=== PATIENT | female | born 1995 | race Caucasian/White ===

== ENCOUNTER 2021-04-04 07:52 | Emergency (ER) | payer OTHER, SELFPAY ==
[2021-04-04 08:12] VITALS: BP 150/83; PULSE 105; RESP 20; TEMP 36.5; O2SAT 97
[2021-04-04] MEDS: diazePAM INJ (*CRX) 10 MG/2 ML SYRINGE 5 MG IV PUSH (08:27)
[2021-04-04] MEDS: MORPHINE SULFATE (*CRX) 4 MG/ML INJ IV PUSH (11:11)
--- NOTE | 2021-04-04 11:50 | ED.BACK ---
HPI - Back Pain/Injury General Chief Complaint: Back Pain/Injury Stated Complaint: back pain Time Seen by Provider: 04/04/21 07:56 History of Present Illness HPI Narrative: Patient is a 26-year-old female who presents ER with low back pain. Woke up this morning with the pain in the L4 region of her back. Has history of this in the past. She has had epidural injections in the past. None recently. No fevers or chills or sweats. No radiation to her legs. No saddle anesthesia or difficulty with urination/defecation. States she was having trouble at work today and usual cannot work so she needed to come to the ER to be evaluated. No known trauma. She does report she has been at home with her children and has been doing her normal activities without. Related Data Allergies Allergy/AdvReac Type Severity Reaction Status Date / Time amoxicillin Allergy Intermediate Hives Verified 04/04/21 08:14 codeine Allergy Mild Hives Verified 04/04/21 08:14 watermelon Allergy Mild Difficulty Verified 04/04/21 08:14 Swallowing Review of Systems Review of Systems: All systems reviewed & are unremarkable except as noted in HPI and below Constitutional: Constitutional: Denies chills and Denies fever(s) Cardiovascular: Cardiovascular: Denies chest pain, Denies rapid heart rate and Denies radiating jaw, neck or arm pain Respiratory: Respiratory: Denies cough, Denies dyspnea and Denies wheezing Genitourinary: Genitourinary: Denies dysuria and Denies flank pain Musculoskeletal: Musculoskeletal: Reports back pain, Denies arthralgias, Denies joint swelling and Denies muscle cramps PMFSH Past Medical History Medical History (Updated 04/04/21 @ 12:08 by Delbert Mcmahan MD) Chronic low back pain Kidney stones Pyelonephritis Surgical History Surgical History (Updated 04/04/21 @ 12:08 by Delbert Mcmahan MD) History of section Social History Social History (Updated 04/04/21 @ 12:08 by Delbert Mcmahan MD) Substance use: never Exam Narrative: GENERAL: Uncomfortable-appearing, well-nourished, and in no acute distress. HEAD: Normocephalic, atraumatic. EYES: PERRL and EOMI. CHEST: Clear to auscultation. No respiratory distress. HEART: Tachycardia, regular. Normal peripheral pulses. ABDOMEN: Soft, nontender, nondistended. Back: Mild discomfort midline at L4 however patient has significant increase in tenderness in the paraspinal musculature at L5-S1. No step-offs. No bruising. There is a pain patch along the midline that patient is placed herself. EXTREMITIES: Normal range of motion. No edema. SKIN: Warm, dry, no rash. NEURO: Alert and oriented x3. Course Course Emergency Course: Patient given Tylenol/Valium/morphine for pain control. Recommend outpatient treatment with Medrol Dosepak, muscle relaxers, and some mild narcotic pain relief. In 2018 patient was seen at [facility] and had an MRI that she reports that showed irritation of the disc near her sciatic nerve and she was treated similarly with muscle relaxers and narcotic pain therapy. She was supposed to follow-up but never did. Discussed that is recommend she follow-up with a spine physician if she has chronic disc issues again for pain as they may have other options for her. Vital Signs Vital signs: Vital Signs Temperature 97.7 F 04/04/21 08:12 Pulse Rate 105 H 04/04/21 08:12 Respiratory Rate 20 04/04/21 08:12 Blood Pressure 150/83 H 04/04/21 08:12 Pulse Oximetry 97 04/04/21 08:12 Temperature 97.7 F 04/04/21 08:12 Pulse Rate 105 H 04/04/21 08:12 Respiratory Rate 20 04/04/21 08:12 Blood Pressure 150/83 H 04/04/21 08:12 Pulse Oximetry 97 04/04/21 08:12 Discharge Plan Discharge Clinical Impression: Low back pain Patient Disposition: Home, Self-Care Condition: Stable Instructions: Lower Back Exercises (ED) Additional Instructions: Return to the ER if you have increased pain in your
== END 2021-04-04 12:30 | disposition home or self-care (01) ==
PROVIDERS: Emergency Provider Emergency Medicine
DX: M54.50 Low back pain, unspecified (principal); Z87.442 Personal history of urinary calculi
CPT/HCPCS: 96374; 96375; 99284; J0131; J2270; J3360